=== PATIENT | male | born 1950 | race Caucasian/White ===

== ENCOUNTER 2016-11-10 11:25 | Day surgery (SDC) | payer MEDICARE, OTHER ==
[~2016-11-10] VITALS: Ht 157.5 cm; Wt 60.4 kg
[~2016-11-10 11:25] MED LIST: SYNTHROID PO
[2016-11-10 13:10] VITALS: Ht 157.5 cm; Wt 60.4 kg
[2016-11-10 13:20] VITALS: BP 143/83; PULSE 88; RESP 18
[2016-11-10] MEDS ORDERED: LIDOCAINE 2% (SDV) 5 ML INJ ONE (13:35)
[2016-11-10] MEDS ORDERED: PROPOFOL 40 ML ONE (13:35)
[2016-11-10] MEDS ORDERED: PROPOFOL 20 ML ONE (14:13)
[2016-11-10] MEDS ORDERED: EPHEDrine SULFATE 50 MG/5 ML SYG ONE (14:13)
[2016-11-10 14:53] VITALS: BP 134/69; PULSE 84; RESP 14
--- NOTE | 2016-11-10 16:51 | GILP ---
DATE OF PROCEDURE: 11/10/2016 NAME OF PROCEDURES: Colonoscopy and biopsy. SURGEON: Jimmie Gannon MD PREOPERATIVE DIAGNOSIS: Positive Cologuard test. POSTOPERATIVE DIAGNOSES 1. Colonoscopy all the way to the cecum. 2. Poor prep making the exam somewhat suboptimal. 3. Small polyp on the ileocecal valve and it was removed using the biopsy forceps. 4. Internal hemorrhoids. INDICATION FOR THE PROCEDURE: Mr. Frederick Morales is a 66-year-old male patient who was noted to h ave positive Cologuard test. The patient was scheduled for colonoscopy for further evaluation. The procedure and possible complications are well explained to the patient and the family and consen t was obtained. DESCRIPTION OF PROCEDURE: Under the influence of anesthesia, the colonoscope was carefully introduc ed in the rectum and under direct vision, it was advanced all the way to the cecum. FINDINGS: The patient had a small polyp on the ileocecal valve and it was removed using the biopsy forceps. The patient had poor prep making the exam somewhat suboptimal. He was noted to have inter nal hemorrhoids. The patient tolerated the procedure very well and there was no complication from the procedure. At the end of the procedure, he was awake with stable vital signs and he was discharged home to the car e of his family. IMPRESSION: 1. Colonoscopy all the way to the cecum. 2. Small polyp on the ileocecal valve was removed using the biopsy forceps. 3. Internal hemorrhoids. PLAN: Await histopathology report. Because of the suboptimal nature of the examination, would carl mmend repeat colonoscopy in 3 to 5 years. Dictated By: JIMMIE DUNLAP/SAAD Conf#: [id number] DID#: [id number] CC: JIMMIE GANNON MD;*EndCC*
== END 2016-11-10 15:38 | disposition home or self-care (01) ==
LOC: GIL 11:25
PROVIDERS: ATTEND Internal Medicine Gastroenterology
DX: R19.5 Other fecal abnormalities (principal); K63.5 Polyp of colon; K64.8 Other hemorrhoids
CPT/HCPCS: 88305